=== PATIENT | female | born 1985 | race Caucasian/White ===

== ENCOUNTER 2017-12-25 07:15 | Inpatient (IN) | payer OTHER ==
[~2017-12-25] VITALS: Ht 162.6 cm; Wt 82.1 kg
[2018-01-24] MEDS ORDERED: OBSTETRIX EC C1 EACH PO (08:20)
== END 2018-01-26 10:08 | disposition home or self-care (01) | DRG 807 ==
LOC: OB/GYN 01-19 07:15 → LDR 01-24 07:50 → OB/GYN 01-24 20:29
PROC: 10E0XZZ Delivery of Products of Conception, External Approach (ICD-10-PCS; principal; 2018-01-24)
PROC: 0KQM0ZZ Repair Perineum Muscle, Open Approach (ICD-10-PCS; 2018-01-24)
PROC: 0W8NXZZ Division of Female Perineum, External Approach (ICD-10-PCS; 2018-01-24)
PROC: 4A1HXCZ Monitoring of Products of Conception, Cardiac Rate, External Approach (ICD-10-PCS; 2018-01-24)
PROC: 3E033VJ Introduction of Other Hormone into Peripheral Vein, Percutaneous Approach (ICD-10-PCS; 2018-01-24)
PROC: 4A033R1 Measurement of Arterial Saturation, Peripheral, Percutaneous Approach (ICD-10-PCS; 2018-01-24)
DX: O70.1 Second degree perineal laceration during delivery (principal); Z37.0 Single live birth; Z3A.40 40 weeks gestation of pregnancy

== ENCOUNTER 2018-01-10 10:25 | Outpatient (CLI) | payer OTHER | END 2018-01-10 10:30 | disposition home or self-care (01) | LOC: NST 10:25 | DX: O36.8910 Maternal care for other specified fetal problems, first trimester, not applicable or unspecified (principal); Z34.00 Encounter for supervision of normal first pregnancy, unspecified trimester ==

== ENCOUNTER 2018-01-13 14:11 | Outpatient (CLI) | payer OTHER | END 2018-01-13 16:17 | disposition home or self-care (01) | LOC: NST 14:11 | DX: Z34.83 Encounter for supervision of other normal pregnancy, third trimester (principal) ==

== ENCOUNTER 2018-01-19 07:45 | Outpatient (CLI) | payer OTHER | END 2018-01-19 08:47 | disposition home or self-care (01) | LOC: NST 07:45 | DX: Z34.83 Encounter for supervision of other normal pregnancy, third trimester (principal) ==

== ENCOUNTER 2018-01-21 11:48 | Outpatient (CLI) | payer OTHER | END 2018-01-21 13:14 | disposition home or self-care (01) | LOC: NST 11:48 | DX: Z34.83 Encounter for supervision of other normal pregnancy, third trimester (principal) ==

== ENCOUNTER 2019-05-03 12:02 | Inpatient (IN) | payer OTHER ==
[~2019-05-03] VITALS: Ht 162.6 cm; Wt 81.6 kg
[~2019-05-03 12:02] MED LIST: OBSTETRIX EC C1 EACH PO
== END 2019-05-24 13:11 | disposition home or self-care (01) | DRG 807 ==
LOC: LDR 05-22 03:04 → OB/GYN 05-22 07:56 → LDR 05-29 11:15 → OB/GYN 06-01 11:15
PROVIDERS: ADMIT Obstetrics & Gynecology
PROC: 10E0XZZ Delivery of Products of Conception, External Approach (ICD-10-PCS; principal; 2019-05-22)
PROC: 0KQM0ZZ Repair Perineum Muscle, Open Approach (ICD-10-PCS; 2019-05-22)
PROC: 4A1HXFZ Monitoring of Products of Conception, Cardiac Rhythm, External Approach (ICD-10-PCS; 2019-05-22)
PROC: 3E033VJ Introduction of Other Hormone into Peripheral Vein, Percutaneous Approach (ICD-10-PCS; 2019-05-22)
DX: O70.1 Second degree perineal laceration during delivery (principal); Z37.0 Single live birth; Z3A.39 39 weeks gestation of pregnancy